=== PATIENT | female | born 1995 | race Caucasian/White ===

== ENCOUNTER → 2016-05-01 | Outpatient (CLI) | payer OTHER ==
--- NOTE | 2016-05-01 11:06 | Diagnostic Imaging Report ---
Left breast ultrasound. INDICATION: Palpable lump at 3 o'clock zone. FINDINGS: The retroareolar region and four quadrants of the breast including the area of the lump at 3 o'clock zone were scanned with no underlying abnormality seen. IMPRESSION: Negative study. Clinical followup of the palpable abnormality is recommended. BIRADS 1. Dictated by: Dictated on workstation # [id number]
== END ==
LOC: RAD 10:12
PROVIDERS: ATTEND Nurse Practitioner Family
DX: N63 Unspecified lump in breast (principal)
CPT/HCPCS: 76641